=== PATIENT | female | born 1960 | race Caucasian/White ===

== ENCOUNTER 2018-01-18 09:20 | Emergency (ER) | payer SELFPAY ==
[2018-01-18 09:59] VITALS: BP 136/81
--- NOTE | 2018-01-18 11:20 | UC ---
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 Some had little vesicles, got redder over time. Has one home visit that is on Thursday and Thursday. Developed no new bites during the week, then on Thursday (after 2nd visit to client's house) has more bites on RFA, L ankle, low back at waistline. Shares a bed with , he hasn't had bites. - History of Current Complaint Chief Complaint: UCSkin Time Seen by Provider: 01/18/18 10:46 Stated Complaint: SKIN COMPLAINT Hx Obtained From: Patient ?: No Onset/Duration: Gradual Onset Skin Exposure Onset/Duration: Days Ago Timing: Constant Onset Severity: Mild Current Severity: Mild Pain Intensity: 2 Location: Diffuse Character: Pruritus, Redness, Raised Aggravating Factor(s): Nothing Alleviating Factor(s): Nothing Associated Signs & Symptoms: Positive: Rash - Allergy/Home Medications Allergies/Adverse Reactions: Allergies Allergy/AdvReac Type Severity Reaction Status Date / Time No Known Allergies Allergy Verified 01/18/18 09:48 Review of Systems Constitutional: Negative Skin: Rash Eyes: Negative ENT: Negative Respiratory: Negative Cardiovascular: Negative Gastrointestinal: Negative Genitourinary: Negative Motor: Negative Neurovascular: Negative Musculoskeletal: Negative Neurological: Negative Psychological: Negative Is Patient Immunocompromised?: No All Other Systems Reviewed And Are Negative: Yes PMH/Surg Hx/FS Hx/Imm Hx Previously Healthy: Yes - Surgical History Surgical History: None - Family History Known Family History: Negative: Blood Disorder - Social History Occupation: Employed Full-time Lives: With Family Alcohol Use: None Substance Use Type: None Smoking Status (MU): Former Smoker - Immunization History Hx Tetanus, Diphtheria Vaccination: Yes - LAST TDAP 1 YEAR AGO Vaccination Up to Date: Yes Physical Exam Triage Information Reviewed: Yes Appearance: Well-Appearing, No Pain Distress, Obese Vital Signs: Initial Vital Signs Temp 98.2 F 01/18/18 09:50 Pulse 71 01/18/18 09:50 Resp 16 01/18/18 09:50 BP 136/81 01/18/18 09:50 Pulse Ox 98 01/18/18 09:50 Vital Signs Reviewed: Yes Eye Exam: Normal Eyes: Positive: Conjunctiva Clear ENT Exam: Normal ENT: Positive: Normal ENT inspection, Hearing grossly normal, Pharynx normal, TMs normal Dental Exam: Normal Neck exam: Normal Neck: Positive: Supple, Nontender, No Lymphadenopathy Respiratory Exam: Normal Respiratory: Positive: Chest non-tender, Lungs clear, Normal breath sounds, No respiratory distress, No accessory muscle use Cardiovascular Exam: Normal Cardiovascular: Positive: RRR, No Murmur Musculoskeletal Exam: Normal Musculoskeletal: Positive: Strength Intact, ROM Intact Neurological Exam: Normal Psychological Exam: Normal Skin Exam: Other - Multiple dark red welts, some with tiny vesicles, most with ecchymotic/dark collars, on bilat forearms, line at waist on low back, L ankle Course/Dx - Course Course Of Treatment: Discussed bed bugs, other possible insects. While chigger bites could look like this, the distribution and time of year make it very unlikely. I suspect that if these were bedbug bites from client's house, pt would have been aware of bites. Flea bites also a possibility. - Diagnoses Provider Diagnoses: insect bites Discharge - Sign-Out/Discharge Documenting (check all that apply): Discharge/Admit/Transfer - Discharge Plan Condition: Stable Disposition: HOME Patient Education Materials: Insect Bite or Sting (ED) Referrals: Nidia ARNOLD,Italia Blackman [Primary Care Provider] - Additional Instructions: As we discussed, I suspect bed bugs based on your distribution. While chiggers might be technically possible, they only live outside and you would have had to have all your affected areas come in contact with the outdoors for this to be the case. Simply use symptomatic relief to help with your spots -- they should fade. If you continue to get bites, you may want to contact an telecommunications engineer. - Billing Disposition and Condition Condition: STABLE Disposition: HOME
== END 2018-01-18 11:17 | disposition home or self-care (01) ==
LOC: UCEAST 09:20
DX: S50.861A Insect bite (nonvenomous) of right forearm, initial encounter (principal); S90.562A Insect bite (nonvenomous), left ankle, initial encounter; S30.860A Insect bite (nonvenomous) of lower back and pelvis, initial encounter; W57.XXXA Bitten or stung by nonvenomous insect and other nonvenomous arthropods, initial encounter; Y93.9 Activity, unspecified; Y92.9 Unspecified place or not applicable; Z87.891 Personal history of nicotine dependence
CPT/HCPCS: 99211; G0463